=== PATIENT | male | born 1955 | race African-American/Black ===

== ENCOUNTER 2019-09-21 12:57 | Emergency (ER) | payer OTHER, SELFPAY ==
--- NOTE | ~2019-09-21 | XR_ITS ---
EXAMINATION: XR finger 2nd LT min 2V DATE: 09/21/2019 13:45 INDICATION: Left hand second digit injury. TECHNIQUE: 3 views of left hand second digit were obtained. COMPARISON: None. FINDINGS: Bone alignment is normal. No fracture. There is mild osteoarthritis of second metacarpophal angeal joint and distal interphalangeal joint. No radiopaque foreign body. IMPRESSION: 1. Mild polyarticular osteoarthritis. Reviewed, dictated and finalized at location A.
[2019-09-21 13:00] VITALS: BP 174/110; PULSE 77; RESP 18; TEMP 36.8; O2SAT 100
--- NOTE | 2019-09-21 13:22 | ED.WOUNDLAC ---
HPI - Wound/Laceration General Chief Complaint: Wound/Laceration Stated Complaint: left index finger lac Time Seen by Provider: 09/21/19 13:17 Source: patient Mode of arrival: ambulatory Limitations: no limitations History of Present Illness HPI narrative: The pt is a 64 y/o male who presents to the ED c/o left index finger laceration. Pt states that he was at work and trying to get a fridge off the back of a truck when he slipped and cut his finger. Pt denies left hand numbness. Pt states that he has not had a Tetanus shot in a long time. Extremity Location: Left: hand (Left index finger) Place: work Context: accidental (Slipped at work) Associated symptoms: none Related Data Home Medications Medication Instructions Recorded Confirmed empagliflozin [Jardiance] mg 09/21/19 lisinopril 09/21/19 Allergies Allergy/AdvReac Type Severity Reaction Status Date / Time codeine AdvReac Unknown Nausea Verified 09/21/19 14:08 Review of Systems Review of Systems: All systems reviewed & are unremarkable except as noted in HPI and below Integumentary/Breasts: Skin/Breast: Reports other (Left index finger laceration) Neurologic: Denies numbness (Left hand) PMFSH Past Medical History Medical History (Updated 09/21/19 @ 16:51 by Steven Bright MD) Arthritis Bronchitis HLD (hyperlipidemia) HTN (hypertension) Inguinal hernia Non-insulin dependent diabetes mellitus Pneumonia Surgical History Surgical History (Updated 09/21/19 @ 13:28 by Yair Phoenix) H/O inguinal hernia repair History of back surgery Hx of tonsillectomy Social History Social History (Updated 09/21/19 @ 13:29 by Yair Phoenix) Smoking status: Smoker, status unknown Comments PCP: Dr. Barth Exam Narrative: Exam Narrative: General appearance: Well-developed, well-nourished Skin: Normal color. Left index showed flap laceration 3 cm, subcutaneous, no ligament, no tendon no bone involved. Patient is able to flex and extend the finger without any limitation. No sensory or motor disorder. Head: Normocephalic, nontraumatic Eyes: Clear conjunctiva ENT: Oropharynx normal, ears normal, nose normal Neck: Supple, nontender Chest and respiratory: Airway patent, no respiratory distress, no accessory muscle use Heart: Regular rate/rhythm Vascular: Normal peripheral pulses, normal capillary refill. Musculoskeletal: Normal range of motion, nontender back Neurologic: Alert and oriented ?3, [employer] is normal as tested, no gross motor deficit Course Course Emergency Course: Improving Vital Signs Vital signs: Vital Signs Temperature 36.8 C 09/21/19 13:00 Pulse Rate 77 09/21/19 13:00 Respiratory Rate 18 09/21/19 13:00 Blood Pressure 174/110 H 09/21/19 13:00 Pulse Oximetry 100 09/21/19 13:00 Temperature 36.8 C 09/21/19 13:00 Pulse Rate 77 09/21/19 13:00 Respiratory Rate 18 09/21/19 13:00 Blood Pressure 174/110 H 09/21/19 13:00 Pulse Oximetry 100 09/21/19 13:00 Procedures Laceration Laceration 1: Date: 09/21/19 Time: 16:44 Site: penis (Left index) and upper extremity (Left index at the palmar side) Size (cm): 3 Description: flap Depth: simple, single layer Local Anesthetic: lidocaine 1% Amount of anesthesia used (mL): 3 Pre-repair: wound explored, irrigated, irrigated extensively and deep structures intact ====== Skin Level ====== Skin layer closed with: other (Ethilon) Size (cm): 6-0 Technique: simple, interrupted ====== Subcutaneous Layer ====== Size: 6-0 Number of sutures: 6 Technique: simple, interrupted ===
[2019-09-21] MEDS: TETANUS,DIPHTHERIA,AC PERTUSSIS ADULT 0.5 ML (ADACEL) IM (14:05)
[2019-09-21 16:50] VITALS: BP 150/80; PULSE 70; RESP 16; O2SAT 97
== END 2019-09-21 16:50 | disposition home or self-care (01) ==
PROVIDERS: Emergency Provider Emergency Medicine; PCP Emergency Medicine
DX: S61.211A Laceration without foreign body of left index finger without damage to nail, initial encounter (principal); M19.90 Unspecified osteoarthritis, unspecified site; E78.5 Hyperlipidemia, unspecified; I10 Essential (primary) hypertension; E11.9 Type 2 diabetes mellitus without complications; Z79.84 Long term (current) use of oral hypoglycemic drugs; W26.9XXA Contact with unspecified sharp object(s), initial encounter
CPT/HCPCS: 12002; 73140; 90715; 99283; A9270

== ENCOUNTER 2020-02-02 15:46 | Emergency (ER) | payer OTHER, SELFPAY ==
--- NOTE | ~2020-02-02 | CT_ITS ---
EXAMINATION: CT brain wo con INDICATION: Syncope COMPARISON: None TECHNIQUE: Standard unenhanced head CT. The dose-length product (DLP) was 605.33 mGy-cm. The mA was a djusted according to patient size. Iterative reconstruction technique was employed. FINDINGS: There is no intracranial hemorrhage, acute infarction, or abnormal mass lesion. The ventric les are normal. There is no abnormal mass effect or midline shift. The israel-white matter differentiat ion is normal. The basal cisterns are patent. The orbits are normal. There is minimal opacification o f the ethmoidal air cells. Cerumen is noted in the right external auditory canal. IMPRESSION: 1. No acute intracranial abnormality. Reviewed, dictated and finalized at location A.
--- NOTE | ~2020-02-02 | XR_ITS ---
XR chest 1V portable DATE: 02/02/2020 16:04 INDICATION: Dizziness, lightheadedness, syncope TECHNIQUE: Portable upright AP chest on 02/02/2020 at 1559 hours COMPARISON: 10/06/2016 PA and lateral views FINDINGS: No pulmonary infiltrate or consolidation, pleural effusion or pulmonary vascular congestion or pneumothorax. Heart size is within normal limits. There is aortic unfolding. No hilar or mediasti nal enlargement. IMPRESSION: No active cardiopulmonary disease Aortic atherosclerosis Reviewed, dictated and finalized at location B.
--- NOTE | 2020-02-02 15:53 | ECG_ITS ---
Measurements Intervals [place] Rate: 79 P: 38 MD: 164 QRS: 3 QRSD: 102 T: -79 QT: 351 QTc: 404 Interpretive Statements SINUS RHYTHM BORDERLINE ST-T WAVE ABNORMALITY- INF/LAT LEADS BORDERLINE ECG Electronically Signed On 02-02-2020 19:43:47 CDT by Tremayne Wallace D.O.
--- NOTE | 2020-02-02 15:55 | ED.GENADULT ---
HPI - General Adult General Chief complaint: Chest Pain Stated complaint: stemi Source: RN notes reviewed History of Present Illness HPI narrative: Patient presents emergency department from work via EMS for syncopal episode. Patient states he was working outside picking up a metal door and began to feel hot and dizzy. Patient states that time he went to his truck and drove back to the office to get some water and he was walking and he had a syncopal episode. Patient states he is feeling better at this time. Notes mild dizziness. He denies having any chest pain shortness of breath or any other symptoms. Related Data Home Medications Medication Instructions Recorded Confirmed empagliflozin [Jardiance] mg 09/21/19 lisinopril 40 09/21/19 Allergies Allergy/AdvReac Type Severity Reaction Status Date / Time codeine AdvReac Unknown Nausea Verified 02/02/20 16:02 Review of Systems Review of Systems: Narrative: Gen.: Denies fevers or chills Eyes: Denies eye pain or visual change ENT: Denies congestion Respiratory: Denies shortness of breath or cough CV: Denies chest pain or palpitations, reports syncope GI: Denies abdominal pain nausea, emesis or diarrhea denies burning, urgency, frequency or hematuria Musculoskeletal: Denies back pain or muscle pain Neuro: Denies numbness, tingling, weakness or focal weakness Skin: Denies rash Except as documented, all other systems reviewed and negative [facility] Past Medical History Medical History Arthritis Bronchitis HLD (hyperlipidemia) HTN (hypertension) Inguinal hernia Non-insulin dependent diabetes mellitus Pneumonia Surgical History Surgical History (Updated 09/21/19 @ 13:28 by Yair Phoenix) H/O inguinal hernia repair History of back surgery Hx of tonsillectomy Social History Social History Smoking status: Smoker, status unknown Gender identity (if verbalized by the patient): Female Exam Narrative: Exam Narrative: APPEARANCE: No acute distress, nontoxic, resting in bed EYES: EOMI HEENT: Normocephalic, atraumatic, OMM RESPIRATORY: No respiratory distress Clear to auscultation bilaterally with no rhonchi wheezing or rales. CARDIOVASCULAR: Regular rate and rhythm without murmurs rubs or gallops. ABDOMINAL: Soft, nontender, nondistended, no rebound or guarding MUSCULOSKELETAl: Moves all extremities. No clubbing, cyanosis or edema. NEURO: Awake and alert. Following commands, speech normal, no focal deficits SKIN:: Warm, dry. No rashes lesions or abrasions PSYCHIATRIC: Normal affect/mood, Course Course Emergency Course: Code STEMI called initially by EMS and field. Discussed with Dr. Fernando came down in the emergency department reviewed EKG and at this time with patient having syncopal episode no chest pain and EKG showing no ST elevation code STEMI was called off Patient has been asymptomatic throughout stay in the ED Discussed with patient results of workup and diagnosis. Discussed need for follow-up with primary care, proper use of medication, and reasons to return to the emergency department. Patient understands and agrees to current treatment plan Vital Signs Vital signs: Vital Signs Temperature 98.2 F 02/02/20 15:56 Pulse Rate 82 02/02/20 15:56 Respiratory Rate 16 02/02/20 15:56 Blood Pressure 139/80 02/02/20 15:56 Pulse Oximetry 100 02/02/20 15:56 Temperature 98.2 F 02/02/20 15:56 Pulse Rate 72 02/02/20 17:43 Respiratory Rate 18 02/02/20 17:43 Blood Pressure 128/78 02/02/20 17:43 Pulse Oximetry 100 02/02/20 17:43 Medical Decision Making MDM Narrative Medical decision making narrative: Patient's episode of syncope is felt due to high risk cause. Syncopal episode was brief and patient is now back to normal mental status. EKG is reviewed without high-risk changes for syncope: There are no signs
[2020-02-02 15:56] VITALS: BP 139/80; PULSE 82; PULSE 84; RESP 16; TEMP 36.8; O2SAT 100
[2020-02-02 16:13] LABS: Basophils Absolute Auto 0.1 K/mm3 (0.0-0.1); Basophils Percent Auto 0.5 % (0.2-1.2); Eosinophils Percent Auto 0.4 % (0-4.4); Hematocrit 46.3 % (42.0-52.0); Hemoglobin 15.5 g/dL (14.0-18.0); Immature Granulocyte Absolute 0.04 K/mm3 (0.00-0.031); Immature Granulocyte Percent A 0.4 % (0-0.5); Lymphocytes Absolute Auto 1.57 K/mm3 (0.9-3.2); Lymphocytes Percent Auto 15.7 % (18.3-44.2); Mean Corpuscular HGB Conc 33.5 g/dl (32-36); Mean Corpuscular Hemoglobin 30.9 pg (26-34); Mean Corpuscular Volume 92.4 fl (80-100); Mean Platelet Volume 9.2 fl (7.4-10.4); Monocytes Absolute Auto 0.8 K/mm3 (0.1-0.6); Monocytes Percent Auto 7.8 % (2.6-8.5); Neutrophils Absolute Auto 7.6 K/mm3 (1.3-6.7); Neutrophils Percent Auto 75.2 % (45.5-73.1); Platelet Count Result 194 k/mm3 (150-375); Red Blood Count 5.01 M/mm3 (4.6-6.20); Red Cell Distribution Width 13.3 % (11.5-14.5)
[2020-02-02 16:31] LABS: Alanine Aminotransferase 12 U/L (4-50); Alkaline Phosphatase 57 U/L (38-126); Anion Gap 11.4 mmol/L (7-16); Aspartate Amino Transferase 15 U/L (17-59); Bilirubin,Total 0.6 mg/dL (0.2-1.3); Blood Urea Nitrogen 20 mg/dL (9-20); Calcium 8.8 mg/dL (8.4-10.2); Carbon Dioxide 26 mmol/L (22-30); Chloride 101 mmol/L (98-107); Estimated CRCL calculation 50 ml/min; Estimated Glomerular Filt Rate > 60; Glucose 148 mg/dL (75-110); Potassium 3.4 mmol/L (3.4-5.0); Sodium 135 mmol/L (137-145)
[2020-02-02 16:35] LABS: Troponin I < 0.012 ng/mL (0.000-0.034)
[2020-02-02 16:41] LABS: Creatine Kinase 123 U/L (55-170); INR 1.2; Prothrombin Time 14.5 Seconds (11.1-14.7)
[2020-02-02 16:43] LABS: Partial Thromboplastin Time 32.1 SECONDS (22.3-36.8)
[2020-02-02 16:48] VITALS: BP 128/82; PULSE 75
[2020-02-02 16:50] VITALS: BP 116/74; PULSE 80
[2020-02-02 16:51] VITALS: BP 127/84; PULSE 75
[2020-02-02 17:04] LABS: Add Urine Microscopic? YES; Appearance Urine Clear (Clear); Bacteria Urine Trace /hpf; Bilirubin Urine Negative (Negative); Blood Urine 2+ (Negative); Color Urine Yellow (Yellow); Glucose Urine UA 3+ mg/dL (Negative); Ketones Urine Negative (Negative); Leukocyte Esterase Ur Negative LEU/UL (Negative); Nitrate Urine Negative (Negative); Protein Urine Negative (Negative); Specific Grav Ur 1.026 (1.001-1.035); Squamous Epithelial Cell Urine Rare /hpf (Few); WBC Urine 0-3 /hpf
[2020-02-02 17:43] VITALS: BP 128/78; PULSE 69; PULSE 72; RESP 18; O2SAT 100
[2020-02-02 18:32] LABS: Glucose Point of Care 96 (65-105)
[2020-02-02 18:58] LABS: Troponin I < 0.012 ng/mL (0.000-0.034)
== END 2020-02-02 19:12 | disposition home or self-care (01) ==
PROVIDERS: Emergency Provider Emergency Medicine; PCP Emergency Medicine
DX: R55 Syncope and collapse (principal); M19.90 Unspecified osteoarthritis, unspecified site; E78.5 Hyperlipidemia, unspecified; I10 Essential (primary) hypertension; E11.9 Type 2 diabetes mellitus without complications; R94.31 Abnormal electrocardiogram [ECG] [EKG]; Z79.84 Long term (current) use of oral hypoglycemic drugs
CPT/HCPCS: 36415; 70450; 71045; 80053; 81001; 82550; 82948; 84484; 85025; 85610; 85730; 93005; 99284

== ENCOUNTER 2020-02-15 13:26 | Emergency (ER) | payer OTHER, SELFPAY ==
--- NOTE | ~2020-02-15 | XR_ITS ---
EXAMINATION: XR hip BI 2V w AP pelvis DATE: 02/15/2020 14:37 INDICATION: Worsening bilateral hip pain TECHNIQUE: AP view the pelvis and two views of each hip were obtained. COMPARISON: None. FINDINGS: Bone alignment is normal. There is advanced right and moderate left hip osteoarthritis. No fracture is identified. The femoral heads are well-seated in their acetabula. Calcified atheroscleros is is noted.. IMPRESSION: 1. Advanced right and moderate left hip osteoarthritis without acute osseous abnormality. Reviewed, dictated and finalized at location A. IMPRESSION: 1. Advanced right and moderate left hip osteoarthritis without acute osseous ab normality.
[2020-02-15 13:37] VITALS: BP 144/84; PULSE 88; RESP 18; TEMP 37.3; O2SAT 96
--- NOTE | 2020-02-15 14:33 | PC.NURSE ---
Pt to xray.
[2020-02-15] MEDS: KETOROLAC (*BKC) 60 MG/2 ML VIAL 30 MG IM (14:45)
--- NOTE | 2020-02-15 15:08 | ED.LOWEXIN ---
HPI - Extremity Injury (Lower) General Chief Complaint: Extremity Injury, Lower Stated Complaint: hip pain/no injury Time Seen by Provider: 02/15/20 13:49 Source: patient Mode of arrival: ambulatory Limitations: no limitations History of Present Illness HPI Narrative: Patient presents with chief complaint of bilateral hip pain right worse than left that has progressively worsened over the past week. Patient states that he does not have a known history of any fractures or known arthritis. Patient has not talked with his primary care doctor steadily regarding his symptoms but states that he will follow-up with him. Patient denies any falls or direct injuries. Patient denies any urinary symptoms or changes. Patient denies any fever, chills, nausea, vomiting, diarrhea, chest pain, shortness of breath or any other concerns during his visit besides his hip pain. Patient states that he has taken some [id number] 200 mg pain medication occasionally for his discomfort but cannot recall the name. Patient denies having renal dysfunction. Patient denies smoking, drinking alcohol, he recreational drug use. Related Data Home Medications Medication Instructions Recorded Confirmed empagliflozin [Jardiance] 10 mg 09/21/19 lisinopril 40 mg 09/21/19 amlodipine 5 mg 02/15/20 Allergies Allergy/AdvReac Type Severity Reaction Status Date / Time codeine AdvReac Unknown Nausea Verified 02/15/20 13:51 Review of Systems Review of Systems: Narrative: CONSTITUTIONAL: Denies fever, chills, or sweats. EYES: Denies visual changes, redness, or discharge. ENT: Denies rhinorrhea, congestion, sore throat, or otalgia. CARDIOVASCULAR: Denies chest pain, palpitations, or edema. RESPIRATORY: Denies cough or dyspnea. GENITOURINARY: Denies dysuria or hematuria. SKIN: Denies rash or itching. MUSCULOSKELETAL: Reports bilateral hip pain right worse than left denies back pain or myalgia. NEUROLOGIC: Denies headache, numbness, dizziness, or weakness. [facility] Surgical History Surgical History (Updated 09/21/19 @ 13:28 by Yair Phoenix) H/O inguinal hernia repair History of back surgery Hx of tonsillectomy Social History Social History Smoking status: Smoker, status unknown Gender identity (if verbalized by the patient): Female Exam Narrative: Exam Narrative: GENERAL: Well-appearing, well-nourished, and in no acute distress. HEAD: Normocephalic, atraumatic. EYES: PERRLA and EOMI. ENT: Nares clear, no rhinorrhea or epistaxis. Mucous membranes moist. Oropharynx without tonsillar hypertrophy exudate or other lesions. Bilateral TMs pearly israel nonbulging NECK: Supple. No adenopathy or masses. CHEST: Clear to auscultation. No respiratory distress. No wheezes rales or rhonchi HEART: Regular rate and rhythm. ABDOMEN: Soft, nontender, nondistended, normal active bowel sounds. EXTREMITIES: ROM intact to hips but illicit pain. No outward deformity, shortening or rotation noted. Patient notes pain to BL groins right worse than left. SKIN: Warm, dry, no rash. NEURO: No focal deficits. Alert and oriented x3. PSYCH: Normal mood and affect. Course Vital Signs Vital signs: Vital Signs Temperature 99.1 F 02/15/20 13:37 Pulse Rate 88 02/15/20 13:37 Respiratory Rate 18 02/15/20 13:37 Blood Pressure 144/84 H 02/15/20 13:37 Pulse Oximetry 96 02/15/20 13:37 Temperature 99.1 F 02/15/20 13:37 Pulse Rate 74 02/15/20 15:29 Respiratory Rate 16 02/15/20 15:29 Blood Pressure 149/93 H 02/15/20 15:29 Pulse Oximetry 98 02/15/20 15:29 MDM - Extremity Injury (Lower) MDM Narrative Medical decision making narrative: Patient has advanced osteoarthritis of right hip and moderate osteoarthritis of the left hip. Patient will be started on meloxicam as he denies renal dysfunction. Patient will be referred to product info specialist for further evaluation and management of
[2020-02-15 15:29] VITALS: BP 149/93; PULSE 74; RESP 16; O2SAT 98
== END 2020-02-15 15:39 | disposition home or self-care (01) ==
PROVIDERS: Emergency Provider Emergency Medicine; PCP Emergency Medicine
DX: M16.0 Bilateral primary osteoarthritis of hip (principal)
CPT/HCPCS: 73521; 96372; 99284; J1885

== ENCOUNTER 2020-03-12 08:48 | Outpatient (CLI) | payer OTHER, SELFPAY ==
--- NOTE | ~2020-03-12 | CT_ITS ---
EXAMINATION: CT lung screening DATE: 03/12/2020 09:05 INDICATION: Personal history of tobacco dependence, current smoker with 30 pack year history TECHNIQUE: Computed tomography (CT) of the chest was performed without intravenous contrast. The dose -length product (DLP) was 109.07 mGy-cm. Automated exposure control and iterative reconstruction tech [employer] were employed. COMPARISON: None FINDINGS: Calcified pulmonary nodules and calcified hilar lymph nodes are consistent with old granulo matous disease. There is mild emphysema. No suspicious pulmonary nodules are identified. There is no pleural effusion or pneumothorax. No pathologically enlarged thoracic lymph nodes are identified. The heart size is normal. Calcified coronary artery atherosclerosis is noted. There is mild thoracic spo ndylosis. IMPRESSION: 1. Lung-RADS category 1: Negative. Continue annual screening with noncontrast low-dose chest CT in 12 months. Reviewed, dictated and finalized at location A. IMPRESSION: 1. Lung-RADS category 1: Negative. Continue annual screening with noncontrast l ow-dose chest CT in 12 months.
== END 2020-03-12 08:49 ==
PROVIDERS: PCP Emergency Medicine; Visit Provider Emergency Medicine
DX: Z12.2 Encounter for screening for malignant neoplasm of respiratory organs (principal); Z87.891 Personal history of nicotine dependence
CPT/HCPCS: G0297

== ENCOUNTER 2020-10-22 10:24 | Outpatient (CLI) | payer BC, SELFPAY ==
--- NOTE | ~2020-10-22 | XR_ITS ---
XR hip RT 1V w AP pelvis DATE: 10/22/2020 10:48 INDICATION: Right hip replacement TECHNIQUE: AP pelvis. AP view of right hip. COMPARISON: 02/15/2020 AP pelvis and bilateral hips FINDINGS: Interval right total hip arthroplasty since 02/15/2020. Normal alignment at the right prosthe tic hip. No pelvic fracture or bone destruction. No fracture or dislocation of either hip. The pubic symphysis and sacroiliac joints are intact. IMPRESSION: Status post right total hip arthroplasty Reviewed, dictated and finalized at location A.
== END 2020-10-22 10:25 | disposition home or self-care (01) ==
PROVIDERS: PCP Emergency Medicine
DX: Z96.641 Presence of right artificial hip joint (principal)
CPT/HCPCS: 73501

== ENCOUNTER 2021-02-11 09:43 | Outpatient (CLI) | payer BC, SELFPAY ==
--- NOTE | ~2021-02-11 | XR_ITS ---
EXAMINATION: XR hip RT 2V w AP pelvis DATE: 02/11/2021 10:22 INDICATION: Total right hip replacement. TECHNIQUE: An anteroposterior view of the pelvis and 2 views of right hip were obtained. COMPARISON: Right hip radiographs 10/22/2020 FINDINGS: There is a total right hip arthroplasty in near-anatomic alignment. No fracture. No peripro sthetic lucency to suggest loosening or infection. There is moderate left hip osteoarthritis. IMPRESSION: 1. Total right hip arthroplasty in near-anatomic alignment. 2. Moderate left hip osteoarthritis. Reviewed, dictated and finalized at location A.
== END 2021-02-11 09:44 | disposition home or self-care (01) ==
PROVIDERS: PCP Emergency Medicine
DX: Z96.641 Presence of right artificial hip joint (principal); M16.12 Unilateral primary osteoarthritis, left hip
CPT/HCPCS: 73502